=== PATIENT | female | born 1980 | race Caucasian/White ===

== ENCOUNTER 2022-04-13 15:37 | Emergency (ER) | payer OTHER ==
[~2022-04-13] VITALS: Ht 170.2 cm; Wt 77.1 kg
[2022-04-13] MEDS ORDERED: MECLIZINE HCL 25 MG TABLET PO ONE (16:00)
[2022-04-13] MEDS ORDERED: MECLIZINE HCL 25 MG TABLET ONE (16:01)
[2022-04-13 16:06] LABS: *BILIRUBIN,URIN NEGATIVE (NEGATIVE); *BLOOD, URINE NEGATIVE (NEGATIVE); *CLARITY,URINE CLEAR (CLEAR); *COLOR,URINE YELLOW (YELLOW); *KETONES,URINE 1+ (NEGATIVE); *UROBILINOGEN,URINE 0.2 E.U./dl (NORMAL); LEUKOCYTE ESTERASE ,URINE NEGATIVE (NEGATIVE); NITRITE, URINE NEGATIVE (NEGATIVE); PH,URINE 5.5 (5.0-8.0); UGLUCOSE 2+ (NEGATIVE)
[2022-04-13 16:09] LABS: *URINE HCG, QUAL NEG (NEGATIVE)
[2022-04-13 16:23] LABS: HEMATOCRIT 43.1 % (31.2-41.9); MEAN CORPUSCULAR HEMOGLOBIN 28.9 uug (24.7-32.8); MEAN CORPUSCULAR VOLUME 89.1 fL (75.5-95.3); PLATELET COUNT (AUTO) 283 K/uL (179-408)
[2022-04-13 16:39] LABS: CARBON DIOXIDE 25 mmol/L (21-32); CHLORIDE 102 mmol/L (98-107); CREATININE 0.8 mg/dL (0.6-1.3); GLUCOSE 180 mg/dL (74-106); POTASSIUM 3.9 mmol/L (3.5-5.1); UREA NITROGEN, BLOOD 13 mg/dL (7-18)
--- NOTE | 2022-04-13 17:03 | NUR ---
Patient is resting comfortably on gurney while intermittently using her personal electronic device.
[2022-04-13] MEDS ORDERED: METFORMIN (17:17)
[2022-04-13] MEDS ORDERED: VICODIN (17:17)
[2022-04-13] MEDS ORDERED: GLIPIZIDE (17:17)
[2022-04-13] MEDS ORDERED: OMEPRAZOLE (17:17)
[2022-04-13] MEDS ORDERED: FOLIC ACID (17:17)
[2022-04-13] MEDS ORDERED: MECL-159 PO (17:45)
--- NOTE | 2022-04-13 17:57 | NUR ---
Patient discharged to home in stable condition with brisk steady gait. Written and verbal after care instructions given. Patient verbalized understanding and compliance of instructions. Stressed follow up with primary doctor or return to ER for worsening s/s. Copies of all the tests' results were given to patient as well.
== END 2022-04-13 17:57 | disposition home or self-care (01) ==
LOC: ER 15:37
DX: R00.2 Palpitations (principal); R42 Dizziness and giddiness; F41.9 Anxiety disorder, unspecified; E11.9 Type 2 diabetes mellitus without complications; Z79.84 Long term (current) use of oral hypoglycemic drugs
CPT/HCPCS: 36415; 70450; 84443; 84484; 84703; 85025; 93005; A4663; J8597

== ENCOUNTER 2023-02-14 17:48 | Emergency (ER) | payer SELFPAY ==
[~2023-02-14] VITALS: Ht 170.2 cm; Wt 78.5 kg
[~2023-02-14 17:48] MED LIST: FOLIC ACID; GLIPIZIDE; MECL-159 PO; METFORMIN; OMEPRAZOLE; VICODIN
[2023-02-14 17:57] VITALS: O2SAT 99
[2023-02-14] MEDS ORDERED: IBUPROFEN 400 MG TABLET PO ONE (18:15)
[2023-02-14] MEDS ORDERED: HYDROCODONE/APAP 5-325MG TABLET PO ONE (18:15)
[2023-02-14] MEDS ORDERED: IBUPROFEN 400 MG TABLET ONE (18:26)
[2023-02-14] MEDS ORDERED: HYDROCODONE/APAP 5-325MG TABLET ONE (18:27)
[2023-02-14 18:48] LABS: *URINE HCG, QUAL NEGATIVE (NEGATIVE)
[2023-02-14] MEDS ORDERED: IBUP-1958 PO (18:49)
[2023-02-14] MEDS ORDERED: HYDR-4209 PO (18:49)
[2023-02-15] MEDS ORDERED: ACET1TAB23 PO (13:21)
[2023-02-15] MEDS ORDERED: IBUP-1958 PO (13:21)
== END 2023-02-14 19:07 | disposition home or self-care (01) ==
LOC: ER 17:50
DX: K08.89 Other specified disorders of teeth and supporting structures (principal); G43.909 Migraine, unspecified, not intractable, without status migrainosus; K21.9 Gastro-esophageal reflux disease without esophagitis; E11.9 Type 2 diabetes mellitus without complications; Z79.1 Long term (current) use of non-steroidal anti-inflammatories (NSAID); Z79.899 Other long term (current) drug therapy
CPT/HCPCS: 84703; A4663